=== PATIENT | female | born 1975 ===

== ENCOUNTER 2020-08-15 16:17 | Emergency (ER) ==
[~2020-08-15] VITALS: Ht 160 cm; Wt 93.0 kg
[2020-08-15] MEDS ORDERED: TETRACAINE HCL 0.5% OPTH SOLN 4 ML BTL OP ONE (16:30)
[2020-08-15] MEDS ORDERED: FLUORESCEIN SOD(OPTH) 1 MG STRP OP ONE (16:30)
--- NOTE | 2020-08-15 16:43 | Emergency Department Note ---
History of Present Illnes History of Present Illness Chief Complaint: Eye, Ear, Nose, Throat, Dental History of Present Illness This is a 44 year old female Chief Complaint Comment Patient in from home with complaints of left eye pain that started when she was hit by a zip tie that she cut when opening a box about 1 hour ago. Patient reports that it does not cause her much pain and it only hurts when she blinks. 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 Any updates have been documented here. Past Medical History Recent Fever: No Clinical Suspicion of Infectio: No New/Unexplained Change in Ment: No Past Medical History: Hypertension, Diabetes Past Surgical History: None Review of Systems Review of Systems Constitutional: Reports no symptoms EENTM: Reports no symptoms, Reports eye pain (Left- mild) Cardiovascular: Reports no symptoms Respiratory: Reports no symptoms Gastrointestinal: Reports no symptoms Genitourinary: Reports no symptoms Musculoskeletal: Reports no symptoms Integumentary: Reports no symptoms Neurological: Reports no symptoms Psychological: Reports no symptoms Endocrine: Reports no symptoms Hematological/Lymphatic: Reports no symptoms Physical Exam Related Data Allergies: Coded Allergies: No Known Allergies (Unverified , 08/15/20) Triage Vital Signs Vital Signs Date Time Temp Pulse Resp B/P (MAP) Pulse Ox O2 Delivery O2 Flow Rate FiO2 08/15/20 16:22 97.7 88 16 144/89 100 Room Air Vital signs reviewed: Yes Physical Exam CONSTITUTIONAL Constitutional: Present well-developed, Present well-nourished HENT HENT: Present normocephalic, Present atraumatic, Present oropharynx clear/moist, Present nose normal HENT L/R: Present left ext ear normal, Present right ext ear normal EYES Eyes: Reports PERRL; Denies conjunctivae normal (Hemorrhage) NECK Neck: Present ROM normal PULMONARY Pulmonary: Present effort normal, Present breath sounds normal CARDIOVASCULAR Cardiovascular: Present regular rhythm, Present heart sounds normal, Present capillary refill normal, Present normal rate GASTROINTESTINAL Abdominal: Present soft, Present nontender, Present bowel sounds normal GENITOURINARY Genitourinary: Present exam deferred SKIN Skin: Present warm, Present dry MUSCULOSKELETAL Musculoskeletal: Present ROM normal NEUROLOGICAL Neurological: Present alert, Present oriented x 3, Present no gross motor or sensory deficits PSYCHOLOGICAL Psychological: Present mood/affect normal, Present judgement normal Assessment & Plan Medical Decision Making MDM 44-year-old female presents for acute onset left eye pain after a strap on the box hit the left eye. She denies any changes in visual acuity. She has some conjunctival hemorrhage but no signs of foreign body. Slit lamp examination is unremarkable. No significant fluorescent uptake. Instructed her to follow up with ophthalmology as needed and informed her about the expected disease time course and management. Patient is appropriate for discharge. Reassessment Reassessment time: 16:42 Reassessment Well appearing, NAD Assessment & Plan Final Impression: (1) Conjunctival hemorrhage of left eye Depart Disposition: HOME, SELF-CARE Last Vital Signs Date Time Temp Pulse Resp B/P (MAP) Pulse Ox O2 Delivery O2 Flow Rate FiO2 08/15/20 16:22 97.7 88 16 144/89 100 Room Air Medications in the ED Tetracaine HCl ONCE ONCE OP ; Start 08/15/20 at 16:30; Stop 08/15/20 at 16:31; Status DC Fluorescein Sodium 1 mg ONCE ONCE OP ; Start 08/15/20 at 16:30; Stop 08/15/20 at 16:31; Status DC EVANGELINA FERNÁNDEZ MD Aug 15, 2020 16:43
== END 2020-08-15 17:21 | disposition home or self-care (01) ==
LOC: ER 16:36
DX: B30.3 Acute epidemic hemorrhagic conjunctivitis (enteroviral) (principal)
CPT/HCPCS: 99282